=== PATIENT | male | born 1965 | race Caucasian/White ===

== ENCOUNTER 2024-08-03 07:22 | Day surgery (SDC) | payer BC ==
[2024-08-02 13:25] LABS: Absolute Eosinophils 0.2 K/uL (0-0.5); Absolute Lymphocytes (CBC) 1.8 K/uL (0.7-4.9); Absolute Monocytes 0.6 K/uL (0.1-1.3); Absolute Neutrophil 4.4 K/uL (1.8-8.0); Basophils % 0.3 % (0-1.3); Eosinophils % 2.8 % (0-4.4); Hematocrit 48.4 % (39.6-49.0); Hemoglobin 16.6 g/dL (13.6-17.9); Lymphocytes % 25.8 % (15.3-44.8); MCH 28.6 pg (27.0-35.0); MCHC 34.3 g/dL (32.0-36.0); MCV 83.3 fL (80-100); MPV 8.4 fL (7.6-11.3); Monocytes % 8.1 % (3.3-12.3); Nucleated Red Blood Cells % 0.1 % (0-0); Platelets 205 thou/uL (152-406); RBC Red Blood Cell Count 5.81 M/uL (4.33-5.43)
[2024-08-02 13:45] LABS: ALT/SGPT 29 U/L (16-61); AST/SGOT 19 U/L (15-37); Albumin 3.6 g/dL (3.4-5.0); Albumin/Globulin Ratio 0.8 (1.1-1.8); Alkaline Phosphatase 93 U/L (45-117); Anion Gap 5.2 mEq/L (5.0-15.0); BUN Blood Urea Nitrogen 11 mg/dL (7-18); Bicarbonate 33 mEq/L (21-32); Bilirubin Direct < 0.2 mg/dL (0-0.2); Bilirubin Indirect, Calculated 0.2 mg/dL (0.2-0.8); Bilirubin Total 0.4 mg/dL (0.2-1.0); Globulin 4.7 g/dL (2.3-3.5); Glomerular Filtration Rate 67 ml/min (=/>90); Glucose Level 94 mg/dL (74-106); Lipase 26 U/L (13-75); Protein, Total 8.3 g/dL (6.4-8.2); Sodium Level 139 mEq/L (136-145)
[2024-08-02 13:50] LABS: Potassium 6.2 mEq/L (3.5-5.1)
--- NOTE | 2024-08-02 14:48 | RAD REPORT ---
EXAMINATION: TWO VIEW CHEST XR CLINICAL INDICATION: Pre-op pending cholecystectomy TECHNIQUE: 2 views of the chest was performed. COMPARISON: No prior exam. FINDINGS: The lungs are well inflated and clear. The heart is normal in size. No displaced fractures evident. IMPRESSION: No acute or significant abnormalities.
[2024-08-02 15:25] LABS: Anion Gap 6.3 mEq/L (5.0-15.0); Magnesium 2.2 mg/dL (1.6-2.4); Phosphorus 3.3 mg/dL (2.5-4.9); Potassium 4.3 mEq/L (3.5-5.1)
[2024-08-03] MEDS: Ringers Lactate 1,000 ML IV ONE (07:50)
[2024-08-03] MEDS ORDERED: GLYCOPYRROLATE 0.2 MG/ML SYR ONE (08:11)
[2024-08-03] MEDS ORDERED: LIDOCAINE 2% MPF 5 ML VIAL ONE (08:11)
[2024-08-03] MEDS ORDERED: propofoL 200 MG/20 ML VIAL IV ONE (08:11)
[2024-08-03] MEDS ORDERED: ONDANSETRON 4 MG/2 ML VIAL ONE (08:11)
[2024-08-03] MEDS ORDERED: ROCURONIUM 50 MG/5 ML VIAL IV ONE (08:11)
[2024-08-03] MEDS ORDERED: NEOSTIGMINE 1 MG/ML -10 ML VIAL ONE (08:11)
[2024-08-03] MEDS ORDERED: MIDAZOLAM HCL 2 MG/2 ML INJ ONE (08:12)
[2024-08-03] MEDS ORDERED: FENTANYL CITR 100 MCG/2 ML ONE ×2 (08:12→09:38)
[2024-08-03] MEDS: CEFOXITIN SODIUM 1 GM/VIAL ONE (08:36)
[2024-08-03] MEDS ORDERED: EPHEDRINE SULF 50 MG/ML VIAL ONE (09:26)
[2024-08-03] MEDS ORDERED: KETOROLAC 30 MG/ML INJ ONE (09:34)
[2024-08-03] MEDS ORDERED: dexAMETHasone 4 MG/ML VIAL ONE (09:34)
[2024-08-03] MEDS ORDERED: Mastisol Adhesive Liq ONE (09:58)
--- NOTE | 2024-08-03 10:24 | P.OP ---
Date of Service: 08/03/24 Preop diagnosis: Chronic cholecystitis and cholelithiasis, umbilical hernia Postop diagnosis: Same with acute and chronic cholecystitis Procedure performed: Laparoscopic cholecystectomy, repair of umbilical hernia Surgeon: Bruce Nix MD [place]: None Estimated blood loss: Minimal Specimen: Hernia sac, gallbladder Findings: As above Anesthesia: General Complications: None Drains: None Fluids and blood products: Nonapplicable Disposition: Recovery room Operative note: Patient brought to the OR and placed in supine position. General anesthesia began. Patient prepped and draped in usual sterile fashion. Marcaine 0.5% infiltrated locally. 15 blade used to make a 3 cm incision to the left of the umbilicus over the hernia. Subcutaneous tissue divided. Bleeding controlled cautery. Hernia sac identified and dissected down to the fascial edge. Hernia sac and contents excised sent to pathology as specimen. Good fascial edges obtained. A 1 cm defect remained. #1 Vicryl stay suture placed. 12 mm trocar placed into the peritoneal cavity under direct vision. Pneumoperitoneum established. Three 5 mm trocars placed under direct vision. 1 trocar placed in the epigastric region just to the right of midline. 2 trocars placed in the right subcostal region. Laparoscopy revealed some omental adhesions and a distended gallbladder consistent with acute and chronic cholecystitis. Gallbladder aspirated and clear bile was present which is consistent with acute cholecystitis. Fundus retracted superiorly. Infundibulum identified and retracted inferolaterally. Cystic duct and cystic artery clearly identified with blunt dissection. Clips placed and both structures divided. Cautery used to remove the gallbladder from the liver bed. Bleeding on the liver bed controlled with cautery. Gallbladder retrieved through the umbilicus via Endo Catch bag. Pneumoperitoneum reestablished. Right upper quadrant irrigated. No evidence of bleeding or bile leakage appreciated. Subsequently, all trocars removed under direct vision. Stay sutures tied to each other to close the hernia defect. Wound irrigated and bleeding controlled cautery. 3-0 chromic used to approximate subcutaneous tissue. [place] used to close skin. Sterile dressing applied. Patient awakened and taken to recovery room in good g eneral condition. CC:
[2024-08-03] MEDS ORDERED: NALOXONE 0.4 MG/ML VIAL ONE (10:31)
[2024-08-03] MEDS: HYDROMORPHONE HCL 1 MG/ML INJ ONE (10:46)
[2024-08-03 11:10] VITALS: TEMP 97.2
[2024-08-03] MEDS ORDERED: HYDROCODONE/APAP 7.5/325 MG TAB ONE (11:24)
[2024-08-03] MEDS: HYDROCODONE/APAP 7.5/325 MG TAB PO PRN (11:27)
[2024-08-03 11:58] VITALS: BP 151/84; O2SAT 96
--- NOTE | 2024-08-03 14:41 | EKG ---
Test Date: 2024-08-02 Test Time: 13:00:41 [employer] Superintendent: KEAGAN MEASUREMENT RESULTS: Intervals: Rate: 66 RI: 192 QRSD: 84 QT: 374 QTc: 392 [place]: P: 22 RI: 192 QRS: 26 T: 51 INTERPRETIVE STATEMENTS: Normal sinus rhythm Normal ECG No previous ECG available for comparison Electronically Signed On 08-03-24 14:39:55 CDT by Jeremy Burleson
== END 2024-08-03 12:20 | disposition home or self-care (01) ==
LOC: OR 07:22
PROVIDERS: ATTEND Surgery
PROC: 0FT44ZZ Resection of Gallbladder, Percutaneous Endoscopic Approach (ICD-10-PCS; principal; 2024-08-03 09:00)
DX: K80.12 Calculus of gallbladder with acute and chronic cholecystitis without obstruction (principal); E87.5 Hyperkalemia
CPT/HCPCS: 47562; 93005; 85025; 80048 ×2; 36415; 83735; 84100; 80076; 88302; 88304; 83690; 71046; J2704; J1100; J2710; J2310; J2003; J2250; J3010 ×2; J1171; J0694; J2405; J7120